=== PATIENT | male | born 1950 | race Caucasian/White ===

== ENCOUNTER 2022-11-19 22:35 | Emergency (ER) | payer OTHER ==
--- OUTSIDE RECORDS SUMMARY | 2022-11-19 22:39 | XMS REPORT | Continuity of Care Document ---
:1950 Author Organization [facility] t Address [address] [place] [address] [address] [place] [address] Care Team Providers Name Role Phone Win Herrera MD Primary Care Physician Shmuel Hunter MD Attending Clinician Marco CHOW, Unique Garrett Attending Clinician Ruddy NICHOLE, Christi Attending Clinician Unavailable Kai HAND, Taylor Garisa Attending Clinician Rommel Monzon MD Attending Clinician Preston Zaragoza MA Attending Clinician Unavailable Brooklynn Bergeron APRN Attending Clinician Leonor Attending Clinician Unavailable Michel Moffett MD Attending Clinician [phone] SHMUEL HUNTER Admitting Clinician Unavailable Leonor Admitting Clinician Unavailable Payers Payer Name Policy Type Policy Number Effective Date Expiration Date [employer] [id number] (MEDICARE REPLACEMENT/ADVANTAGE - PPO) Problems Condition Condition Condition Status Onset Resolution Last Treating Co mments Source Name Details Category Date Date Treatment Clinician Date Instabilit Instabilit Disease Active 2022-0 M ethodi y of y of 6-12 st internal internal 00:00: Hospit a left knee left knee 00 l prosthesis prosthesis , initial , initial encounter encounter Chronic Chronic Disease Active Methodi pain of pain of 5-15 st left knee left knee 00:00: Hosp riana 00 l Gabby-prost Gabby-prost Disease Active M ethodi hetic hetic 5-15 st fracture fracture 00:00: Hospit a of shaft of shaft 00 l of femur of femur Instabilit Instabilit Disease Active M ethodi y of y of 3-07 st internal internal 00:00: Hospit a left knee left knee 00 l prosthesis prosthesis Bilateral Bilateral Disease Active Met hodi primary primary 1-31 st osteoarthr osteoarthr 00:00: Ho spita itis of itis of 00 l knee knee Status Status Disease Active Methodi post post -31 st bilateral bilateral 00:00: Hosp riana knee knee 00 l replacemen replacemen ts ts Pain in Pain in Problem Active [facility] both feet Both Feet 1-17 Orth ope 00:00: dic 00 Sports Medicin e Pain of Pain of Problem Active [facility] left knee Left Knee 1-17 Orth ope joint Joint 00:00: dic 00 Sports Medicin e Sleep Sleep Disease Active 2021-05 Methodi apnea apnea 2-15 st 00:00: Hospita 00 l Hip pain Hip Pain Problem Active [facility] a 4-02 Orthope 00:00: dic 00 Sports Medicin e Knee pain Knee Pain Problem Active Cassidy chaudhary 4-02 Orthope 00:00: dic 00 Sports Medicin e Hypermobil Hypermobil Problem Active 2016-05 A 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 00:00: dic 00 Sports Medicin e Seronegati Seronegati Problem Active A juve ve ve 9-06 Orthope rheumatoid Rheumatoid 00:00: di c arthritis Arthritis 00 Spor ts Medicin e Eruption Eruption Problem Active Amanuel a 9-06 Orthope 00:00: dic 00 Sports Medicin e Restrictiv Restrictiv Problem Active 2014-05 Gerald felder 2-08 Orthope cardiomyop Cardiomyop 00:00: di c athy athy 00 Sports secondary Secondary Medi flower to to e granulomas Granulomas Gastroesop Gastroesop Problem Active 2013-05 A juve hageal hageal 1-18 Orthope reflux Reflux 00:00: dic disease Disease 00 Sports Medicin e Diverticul Diverticul Problem Active 2013-05 Gerald an um of um of 1-18 Orthope bladder Bladder 00:00: dic 00 Sports Medicin e Acute Acute Problem Active 2013-05 [facility] prostatiti Prostatiti 1-18 Or thope s s 00:00: dic 00 Sports Medicin e Insomnia Insomnia Problem Active 2013-05 Azale a with sleep with Sleep -18 Or thope apnea Apnea 00:00: dic 00 Sports Medicin e Allergies, Adverse Reactions, Alerts Allergy Allergy Status Severity Reaction(s) Onset Inactive Treating Comm ents Source Name Type Date Date Clinician Levoflox Propensi Active Rash 2021-05 Method i acin ty to 2-15 st adverse 00:00: Hospita reaction 00 l s to drug Penicill Propensi Active Rash 2021-05 Method i in ty to 2-15 st adverse 00:00: Hospita reaction 00 l s to drug Levaquin Allergy Active [facility] to 3-21 Orthope substanc 00:00: dic e 00 Sports Medicin e PENICILL Allergy Active [facility] IN to 3-21 Orthope substanc 00:00: dic e 00 Sports Medicin e Penicill DA Active [facility] ins 5-20 [place] 00:00: Orthope 00 dic Hospita l levoflox DA Active [facility] acin 5-20 [place] 00:00: Orthope 00 dic Hospita l Family History Family Member Diagnosis Comments Start Date Stop Date Source Natural father Cancer [facility] Natural mother Cancer [facility] Social History Social Habit Start Date Stop Date Quantity Comments Source Gender identity [facility] Sexual orientation [facility] Alcohol intake 2022-11-18 2022-11-18 Current drinker [facility] 00:00:00 00:00:00 of alcohol Hospital (finding) History of Social 2022-11-18 2022-11-[address] function 00:00:00 00:00:00 Hospital Tobacco use and 2022-06-22 2022-06-22 Smokeless Judaism exposure 00:00:00 00:00:00 tobacco non-user Hospital Sex Ass[birth year] At [birth year] [facility] 00:00:00 00:00:00 Hospital Smoking Status Start Date Stop Date Source Never smoked tobacco [facility] Medications Ordered Filled Start Stop Current Ordering Indication Dosage Frequency Signature Comments Components Source Medication Medication Date Date Medication? Clinician (SIG) Name Name ciprofloxac 2022- Yes 500mg Q.5D Take 1 Me thodi in (Cipro) 11-18-[address] 500 MG 00:00: 04:59 (500 mg Hospita tablet 00 :00 total) by l mouth 2 (two) times a day for 14 days. HYDROcodone 2022- Yes [id number] 1{tbl} Q4H Take 1 Methodi -acetaminop 11-18-[address] hen (Deep Nines) 00:00: 04:59 mouth Hosp riana 7.5-325 mg 00 :00 every 4 l per tablet (four) hours as needed for moderate pain for up to 7 days .acute pain. Max Daily Amount: 6 tablets multivitami Yes 1{tbl} QD Take 1 Me thodi n tablet 6-[address] 14:40: mouth Hospita 42 daily. l docusate Yes 100mg Q.5D Take 1 Method i sodium 6-[address] (Colace) 00:00: (100 mg Hospit a 100 MG 00 total) by l capsule mouth 2 (two) times a day as needed for constipati on. celecoxib 2022- Yes 200mg Q.5D Take 1 Meth nasim (CeleBREX) 11-05-[address] 200 MG 00:00: 04:59 (200 mg Hospita capsule 00 :00 total) by l mouth 2 (two) times a day for 30 days. aspirin 81 2022- Yes 81mg Q.5D Chew 1 Meth nasim mg chewable 11-05-17 tablet (81 s t tablet 00:00: 04:59 mg total) Hospi ta 00 :00 2 (two) l times a day for 30 days. [place]DRO[place]one 2022- [place] [id number] 1{tbl} Q6H Take 1 Methodi -acetaminop 6-16 06-[address] hen (Deep Nines) 00:00: 04:59 mouth Hosp riana 7.5-325 mg 00 :00 every 6 l per tablet (six) hours as needed for moderate pain for up to 8 days .acute pain. Max Daily Amount: 4 tablets meloxicam 2022- No TAKE ONE Met hodi (MOBIC) 15 4 06-[address] mg tablet 00:00: 00:00 MOUTH ONCE H ospita 00 :00 DAILY l meloxicam 2022- No 15mg QD Take 1 Metho di (MOBIC) 15 2-03 04-27 tablet (15 st mg tablet 00:00: 00:00 mg total) Ho spita 00 :00 by mouth l daily for 30 days. losartan 2021-05 Yes Methodi (COZAAR) 2-14 st 100 MG 00:00: Hospita tablet 00 l adalimumab 2021-05 Yes Methodi (HUMIRA) 40 2-14 st mg/0.8 mL 00:00: Hospita pen 00 l injector kit injection pen kit fenofibrate 2021-05 Yes Method i (TRICOR) 2-09 st 145 MG 00:00: Hospita tablet 00 l ezetimibe 2021-05 Yes Methodi (ZETIA) 10 2-09 st mg tablet 00:00: Hospita 00 l omeprazole 2021-05 Yes Methodi (PriLOSEC) 1-27 st 40 MG 00:00: Hospita capsule 00 l omeprazole omeprazole No omeprazole [facility] 40 mg 40 mg 40 mg Orthope capsule,del capsule,del capsule,de dic ayed ayed layed Sports release release release Medici n capsule by capsule by capsule by e mouth mouth mouth ezetimibe ezetimibe No ezetimibe [facility] 10 mg 10 mg 10 mg Orthope tablet tablet tablet dic tablet by tablet by tablet by Sports mouth mouth mouth Medicin e fenofibrate fenofibrate No fenofibrat [facility] nanocrystal nanocrystal e O rthope lized 145 lized 145 nanocrysta dic mg tablet mg tablet llized 145 Sports mg tablet Medicin e losartan losartan No losartan Aza neena 100 mg 100 mg 100 mg Orthope tablet TAKE tablet TAKE tablet dic 1 TABLET BY 1 TABLET BY TAKE 1 Sports MOUTH EVERY MOUTH EVERY TABLET BY Medicin DAY DAY MOUTH e EVERY DAY losartan 50 losartan 50 No losartan [facility] mg tablet mg tablet 50 mg Orth ope tablet by tablet by tablet dic mouth mouth tablet by Sports mouth Medicin e Humira(CF) Humira(CF) 2022- No Humira(CF) [facility] Pen 40 Pen 40 06-21 Pen 40 Orthope mg/0.4 mL mg/0.4 mL 00:00 mg/0.4 mL dic subcutaneou subcutaneou :00 subcutaneo Sports s kit s kit us kit Medicin Inject 1 Inject 1 Inject 1 e pen pen pen injector injector injector subcutaneou subcutaneou subcutaneo sly as sly as usly as directed directed directed Immunizations Ordered Immunization Filled Immunization Date Status Commen ts [facility] Completed Methodis t MRNA BIVALENT 00:00:00 Hospital BOOSTER VACCINATION FLUZONE HIGH-DOSE PF 2022-02-22 Completed Meth odist 00:00:00 [place] [id number] 2021-01-06 Completed Methodis t MRNA VACCINATION 00:00:00 [place] [address] 2020-07-15 Completed Methodis t MRNA VACCINATION 00:00:00 [place] [address] 2020-06-17 Completed Methodis t MRNA VACCINATION 00:00:00 Hospital Vital Signs Vital Name Observation Time Observation Value Comments Source BP Diastolic 2022-06-08 00:00:00 123 mm[Hg] [facility] Height 2022-06-08 00:00:00 71 [in_i] [facility] BMI (Body Mass 2022-06-08 00:00:00 37.1 kg/m2 [facility]) Sports Medicine BP Systolic 2022-06-08 00:00:00 197 mm[Hg] [facility] Body Weight 2022-06-08 00:00:00 266 [lb_av] [facility] Body height 2022-11-18 18:00:00 179[facility]1 [facility] Body weight 2022-11-18 18:00:00 121.11 [facility] BMI 2022-11-18 18:00:00 37.77 kg/m2 [facility] Systolic blood 2022-11-05 17:02:17 147 mm[Hg] Method ist Hospital pressure Diastolic blood 2022-11-05 17:02:17 69 mm[Hg] [facility] Hospital pressure Heart rate 2022-11-05 17:02:17 68 /min [facility] Body temperature 2022-11-05 17:02:17 37.22 Jayda [facility] Oxygen saturation in 2022-11-05 17:02:17 97 /min [facility] Arterial blood by Pulse oximetry Respiratory rate 2022-11-05 09:17:41 20 /min [facility] Procedures Procedure Date / Time Performing Clinician Source Performed DURABLE MEDICAL EQUIPMENT 2022-11-05 15:26:11 [facility] CBC WITH PLATELET AND 2022-11-05 10:15:00 [facility] DIFFERENTIAL CBC WITH PLATELET AND 2022-11-04 10:30:00 [facility] DIFFERENTIAL SMEAR REVIEW 2022-11-04 10:30:00 [facility] XR FEMUR 2 VW LEFT 2022-11-03 21:30:00 [facility] CO AN ELECTIVE 2022-11-03 19:23:00 Gopal Morgan [facility] ENDOTRACHEAL AIRWAY ORIF, FRACTURE, FEMUR 2022-11-03 19:11:00 [facility] HEMOGLOBIN & HEMATOCRIT 2022-11-03 10:39:00 [facility] BASIC METABOLIC PANEL 2022-11-03 10:39:00 [facility] ESTIMATED GFR 2022-11-03 10:39:00 [facility] HEMOGLOBIN & HEMATOCRIT 2022-11-02 09:56:00 [facility] BASIC METABOLIC PANEL 2022-11-02 09:56:00 [facility] VANCOMYCIN LEVEL, RANDOM 2022-11-02 09:56:00 [facility] ESTIMATED GFR 2022-11-02 09:56:00 [facility] XR KNEE 1 OR 2 VW LEFT 2022-11-01 23:54:00 [facility] Shmuel [facility] ANAEROBIC CULTURE 2022-11-01 20:13:00 [facility] FUNGUS CULTURE 2022-11-01 20:13:00 [facility] AFB STAIN 2022-11-01 20:13:00 [facility] AFB CULTURE 2022-11-01 20:13:00 [facility] GRAM STAIN 2022-11-01 20:13:00 [facility] JOINT FLUID CULTURE 2022-11-01 20:13:00 [facility] TISSUE CULTURE 2022-11-01 20:13:00 [facility] CO AN ELECTIVE 2022-11-01 19:05:00 Gopal Thakur [facility] SUPRAGLOTTIC AIRWAY Greg REVISION, ARTHROPLASTY, 2022-11-01 18:44:00 [facility] KNEE HC NERVE BLOCK INJ OTHER 2022-11-01 18:35:25 [facility] PERIPHERAL HC US GUIDANCE NEEDLE 2022-11-01 18:32:52 [facility] Floyd [facility] PLACEMENT RS&I HC NERVE BLOCK INJ OTHER 2022-11-01 18:32:52 [facility] PERIPHERAL HC NERVE BLOCK INJ 2022-11-01 18:29:45 [facility] Floyd Ponce [facility] FEMORAL SINGLE W IMG GUID HC NERVE BLOCK INJ OTHER 2022-11-01 18:27:50 [facility] PERIPHERAL ABO/RH 2022-11-01 14:28:00 [facility] POC GLUCOSE 2022-11-01 14:28:00 [facility] SURGICAL PATHOLOGY 2022-11-01 13:49:00 [facility] REQUEST TYPE AND SCREEN 2022-10-26 17:53:00 [facility] PARTIAL THROMBOPLASTIN 2022-10-26 17:53:00 [facility] TIME (PTT) PROTHROMBIN TIME WITH INR 2022-10-26 17:53:00 [facility] CBC WITH PLATELET AND 2022-10-26 17:53:00 Brooklynn Bergeron [facility] DIFFERENTIAL COMPREHENSIVE METABOLIC 2022-10-26 17:53:[address] [facility] PANEL HEMOGLOBIN A1C 2022-10-26 17:53:00 [facility] ESTIMATED GFR 2022-10-26 17:53:00 [facility]lyssa [facility] URINE CULTURE 2022-10-26 17:47:00 Elyssa [facility] URINALYSIS SCREEN AND 2022-10-26 17:47:00 ElyssaBrooklynn vasques [facility] MICROSCOPY, WITH REFLEX TO CULTURE ECG PRE/POST OP 2022-10-26 17:28:44 Elyssa [facility] NM BONE SCAN 3 PHASE 2022-07-07 20:20:00 Shmuel Hunter [facility] C-REACTIVE PROTEIN 2022-06-22 17:55:00 [facility] SEDIMENTATION RATE 2022-06-22 17:55:00 [facility] XR KNEE 3 VW BILATERAL 2022-06-22 15:48:27 [facility] OCT, OPTIC NERVE - OU - 2022-05-06 17:42:47 Michel Moffett [facility] BOTH EYES Gabe AUTOMATED VISUAL FIELD, 2022-05-06 17:39:22 Michel Moffett [facility] EXTENDED - OU - BOTH EYES Gabe Plan of Care Planned Activity Planned Date Details Comments Source Future Scheduled 2022-11-19 Screening for [facility] Test 14:47:11 malignant neoplasm of colon (procedure) [code = 100558131] Future Scheduled 2022-11-19 Screening for [facility] Test 14:47:11 malignant neoplasm of colon (procedure) [code = 122082597] Future Scheduled 2022-11-19 Screening for [facility] Test 14:47:11 malignant neoplasm of colon (procedure) [code = 465677941] Future Scheduled 2022-11-19 Hepatitis C screening [facility] Test 14:47:11 (procedure) [code = 749481115] Future Scheduled 2022-11-19 Screening for [facility] Test 14:47:11 malignant neoplasm of colon (procedure) [code = 891434771] Future Scheduled 2022-11-19 Screening for [facility] Test 14:47:11 malignant neoplasm of colon (procedure) [code = 310900592] Future Scheduled 2022-11-19 SHINGLES VACCINES (1 Met [facility] Test 14:47:11 of 2) [code = SHINGLES VACCINES (1 of 2)] Future Scheduled 2022-11-19 65+ [facility] 14:47:11 VACCINE (1 - PCV) [code = 65+ PNEUMOCOCCAL VACCINE (1 - PCV)] Future Scheduled 2022-11-19 COVID-19 VACCINE (5 - Me [facility] Test 14:47:11 Moderna series) [code = COVID-19 VACCINE (5 - Moderna series)] Future Scheduled 2022-11-19 INFLUENZA VACCINE Method [facility] Test 14:47:11 [code = INFLUENZA VACCINE] Diagnostic Test 2022-06-08 erythrocyte [facility] Pending 00:00:00 sedimentation rate by Sports Medicine westergren method [code = erythrocyte sedimentation rate by westergren method] Diagnostic Test 2022-06-08 C-reactive protein, [facility] Pending 00:00:00 quantitative [code = Sports Medicine C-reactive protein, quantitative] Diagnostic Test 2022-06-08 unlisted lab [code = [facility]al ea Orthopedic Pending 00:00:00 unlisted lab] Sports Medicin e Encounters Start End Encounter Admission Attending Care Care Encounter Source Date/Time Date/Time Type Type Clinicians Facility Department ID 2022-11-19 2022-11-19 Telephone Elsa 1.2.840.1 [id number] Methodi 00:00:00 00:00:00 Shmu[address]674.[address] 3.430.2.7 Hospit a .3.759701 l .8 2022-11-18 2022-11-18 Office Wyatt Lara.2.840.1 [id number] Methodi 13:30:00 14:18:23 Visit Unique Garrett 74701.1.[address] 3.430.2.7 Hospit a .3.720861 l .8 2022-11-18 2022-11-18 Outpatient [facility] [id number] [place] 00:00:00 00:00:[address] 2022-11-15 2022-11-15 Telephone Elsa, 1.2.840.1 [id number] Methodi 00:00:00 00:00:00 Shmuel Damon [address]35.[address] 3.430.2.7 Hospit a .3.846322 l .8 2022-11-08 2022-11-08 Patient Ruddy, 1.2.840.1 [id number] Methodi 00:00:00 00:00:00 Outreach Christi 98902.1.[address] 3.430.2.7 Hospit a .3.570794 l .8 2022-11-01 2022-11-05 Hospital Elsa, 1.2.840.1 [id number] Methodi 08:07:00 14:40:00 Encounter Shmuel Damon 52158.1.1 097 s t 3.430.2.7 Hospit a .3.340236 l .8 2022-11-01 2022-11-05 [id number] 691 [place] 00:00:00 00:00:[address] SHMUEL [address] 2022-11-03 2022-11-03 Surgery Elsa, 1.2.840.1 [id number] Methodi 13:30:00 17:55:00 [address] 3.430.2.7 Hospit a .3.276006 l .8 2022-11-03 2022-11-03 Anesthesia Taylor Quinn 1.2.840.1 [id number] Methodi 14:07:00 17:28:00 Event Rommel Monzon 89672.1.[address] 3.430.2.7 Hospit a .3.156954 l .8 2022-11-02 2022-11-02 Orders Nik 1.2.840.1 [id number] Methodi 00:00:00 00:00:00 Only Preston 18477.1.[address] 3.430.2.7 Hospit a .3.922429 l .8 2022-11-02 2022-11-02 Orders Zaragoza, 1.2.840.1 [id number] Methodi 00:00:00 00:00:00 Only Preston 91477.1.[address] 3.430.2.7 Hospit a .3.040271 l .8 2022-11-01 2022-11-01 Anesthesia Basile Fajardo Ady 1.2.840.1 [id number] Methodi 13:48:00 18:48:00 Event ElyssaBrooklynn Nicol 28080.1.[address] 3.430.2.7 Hospit a .3.591093 l .8 2022-11-01 2022-11-01 Surgery Elsa, 1.2.840.1 [id number] Methodi 14:15:00 18:20:00 Sh[address] Dam[address]01.[address] 3.430.2.7 Hospit a .3.096144 l .8 2022-11-01 2022-11-01 Travel 1.2.840.1 1.2.693.647 [id number] [id number] Methodi 00:00:00 00:00:[address] 3.430.2.7 0.2.7.3.698 spita .3.421429 084.8 l .8 2022-10-29 2022-10-29 Telephone Elsa, 1.2.840.1 [id number] Methodi 00:00:00 00:00:00 Sh[address] 3.430.2.7 Hospit a .3.934893 l .8 2022-10-26 2022-10-26 Office Elsa, 1.2.840.1 [id number] Methodi 10:00:00 12:44:18 Visit Shmuel Damon 07277.1.[address] 3.430.2.7 Hospit a .3.331846 l .8 2022-10-26 2022-10-26 Pre-Admiss Shmuel Hunter 1.2.840.1 [id number] Methodi 11:10:00 12:10:00 Brooklynn MenaAmilcar 98047.1.[address] Testing 3.430.2.7 Hospit a .3.186881 l .8 2022-10-26 2022-10-26 Outpatient ELSA [facility] [id number] [place] 00:00:00 00:00:00 SHMUEL [address] 2022-10-26 2022-10-26 Outpatient ELSA [facility] [id number] [place] 00:00:00 00:00:00 SHMUEL [address] 2022-10-26 2022-10-26 Orders Nik, 1.2.840.1 [id number] Methodi 00:00:00 00:00:00 Only Preston 08583.1.[address] 3.430.2.7 Hospit a .3.068677 l .8 2022-10-26 2022-10-26 Travel 1.2.840.1 1.2.990.314 [id number] [id number] Methodi 00:00:00 00:00:[address] 3.430.2.7 0.2.7.3.698 Ho spita .3.112529 084.8 l .8 2022-10-04 2022-10-04 Orders Nik, 1.2.840.1 [id number] Methodi 00:00:00 00:00:00 Only Preston 00900.1.[address] 3.430.2.7 Hospit a .3.608026 l .8 2022-09-24 2022-09-24 Charles Hunter, 1.2.840.1 [id number] Methodi 00:00:00 00:00:00 [address] 3.430.2.7 Hospit a .3.990053 l .8 2022-09-16 2022-09-16 Refrosio Lara, 1.2.840.1 [id number] Methodi 00:00:00 00:00:00 Unique Garrett 59280.1.[address] 3.430.2.7 Hospit a .3.715673 l .8 2022-07-27 2022-07-27 Office Elsa, 1.2.840.1 [id number] Methodi 11:00:00 12:04:49 Visit Shmuel Damon 41904.1.[address] 3.430.2.7 Hospit a .3.626490 l .8 2022-07-27 2022-07-27 Outpatient [facility] [id number] [place] 00:00:00 00:00:00 SHMUEL [address] 2022-07-09 2022-07-09 Outpatient [facility]_Stocks_ [facility]OS[facility] AOSM 583 [id number] [facility] 00:00:00 00:00:00 Shante [id number] Orth ope dic Sports Medicin e 2022-07-07 2022-07-07 [facility], 1.2.840.1 [id number] Methodi 13:30:00 23:59:00 Encounter Shmuel Damon 26225.1.1 820 s t 3.430.2.7 Hospit a .3.449929 l .8 2022-07-07 2022-07-07 [facility], 1.2.840.1 [id number] Methodi 10:30:00 13:29:00 Encounter Shmuel Damon 49422.1.1 819 s t 3.430.2.7 Hospit a .3.651621 l .8 2022-07-07 2022-07-07 [facility] [id number] [place] 00:00:00 00:00:00 SHMUEL [address] 2022-07-07 2022-07-07 [facility] [id number] [place] 00:00:00 00:00:00 SHMUEL [address] 2022-07-07 2022-07-07 Travel 1.2.840.1 1.2.345.111 [id number] [id number] Methodi 00:00:00 00:00:[address] 3.430.2.7 0.2.7.3.698 Ho spita .3.075777 084.8 l .8 2022-06-28 2022-06-28 Orders Zaragoza, 1.2.840.1 [id number] Methodi 00:00:00 00:00:00 Only Preston 85298.1.[address] 3.430.2.7 Hospit a .3.432290 l .8 2022-06-25 2022-06-25 Orders Lara, 1.2.840.1 [id number] Methodi 00:00:00 00:00:00 Only Unique Garrett [address]90.1.[address] 3.430.2.7 Hospit a .3.011106 l .8 2022-06-22 2022-06-22 Lab Elsa, 1.2.840.1 [id number] Methodi 11:40:00 11:45:00 Sh[address] 3.430.2.7 Hospit a .3.255870 l .8 2022-06-22 2022-06-22 Office Elsa, 1.2.840.1 [id number] Methodi 09:30:00 11:00:06 Visit Shmuel Damon 66798.1.[address] 3.430.2.7 Hospit a .3.509513 l .8 2022-06-22 2022-06-22 Outpatient ELSA [facility] [id number] [place] 00:00:00 00:00:00 SHMUEL [address] 2022-06-22 2022-06-22 Outpatient ELSA [facility] [id number] [place] 00:00:00 00:00:00 SHMUEL [address] 2022-06-22 2022-06-22 Outpatient ELSA [facility] [id number] [place] 00:00:00 00:00:00 SHMUEL [address] 2022-06-22 2022-06-22 Outpatient ELSA, [facility] [id number] [place] 00:00:00 00:00:[address] SHMUEL [address] 2022-06-22 2022-06-22 Travel 1.2.840.1 1.2.426.675 [id number] [id number] Methodi 00:00:00 00:00:[address] 3.430.2.7 0.2.7.3.698 Ho spita .3.942085 084.8 l .8 2022-06-22 2022-06-22 Orders Zaragoza, 1.2.840.1 [id number] Methodi 00:00:00 00:00:00 Only Preston 42756.1.[address] 3.430.2.7 Hospit a .3.048910 l .8 2022-06-21 2022-06-21 Orders Zaragoza, 1.2.840.1 [id number] Methodi 00:00:00 00:00:00 Only Preston 23638.1.[address] 3.430.2.7 Hospit a .3.595343 l .8 2022-06-09 2022-06-09 Travel 1.2.840.1 1.2.177.939 4258 [id number] Methodi 00:00:00 00:00:[address] 3.430.2.7 0.2.7.3.698 Ho spita .3.332094 084.8 l .8 2022-06-08 2022-06-08 Outpatient FOG_Stocks_ AOSM AOSM 583 1135-20 [place] 00:00:00 00:00:00 Shante [id number] Orth ope dic Sports Medicin e 2022-06-08 2022-06-08 Zakiya Clark AOS[facility] [place] - Ortho [id number] 7 [place] 00:00:00 00:00:00 MD Pernell: [place] - Orthope [address] FOG_Ofc dic [place] [facility] [place] [address] , Ph. [phone] 2022-06-05 2022-06-05 Outpatient FOG_Stocks_ AOSM AOSM 583 [id number] [place] 00:00:00 00:00:00 Shante [id number] Orth ope dic [facility] 2022-05-06 2022-05-06 Office Darlene, 1.2.840.1 [id number] Methodi 09:45:00 12:56:08 Visit Michel [address]87.1.[address] [facility] 3.430.2.7 Hospit a .[id number] l .8 2022-05-06 2022-05-06 Outpatient DARLENE, [facility] [id number] [place] 00:00:00 00:00:[address] 2022-05-05 2022-05-05 Travel 1.2.840.1 [id number] Methodi 00:00:00 00:00:[address] 3.430.2.7 0.2.7.3.698 Ho spita .3.342015 084.8 l .8 2022-02-22 2022-02-22 Outpatient FOG_Stocks_ AOSM AOSM 583 [id number] [place] 00:00:00 00:00:00 Shante [id number] Orth ope dic Sports Medicin e 2022-02-22 2022-02-22 Outpatient FOG_Stocks_ AOSM AOSM 583 [id number] [place] 00:00:00 00:00:00 Shante [id number] Orth ope dic Sports Medicin e Results Test Description Test Time Test Comments Results Result Comments Source Tissue culture 2022-11-09 10:10:00 Test Item Value Reference Range Interpretation Comme nts Tissue culture isolate Paenibacillus speciesFewThe A Specimen InformationSpecimen (test code = 70793-7) performance characteristics Source: TissueSpecimen Site: of this assay on this Knee: LEFT KNEE SYNOVIAL isolatewere validated by DANE LARA the Microbiology Laboratory at [facility]. This source has not been approved by the U.S. Food and Drug Administration. The results are not intended to be used as the sole means for clinical diagnosis or patient management. The Microbiology Laboratory is authorized under the clinical Laboratory Improvement Amendments of 1988 (CLIA-88) to perform high complexity testing. Lab Interpretation (test Abnormal code = 68624-2) [facility] [id number] 16:33:12 Test Item Value Reference Range Interpretation Comments SUPPLIER NAME (test code [facility] = 6415) SUPPLIER PHONE (test code = 6416) ORDER STATUS (test code = Delivery Successful 6417) DELIVERY NOTE (test code = 6419) REQUESTED DELIVEY DATE 11/05/2022 (test code = 6420) ITEM DESCRIPTION (test 3 in 1 Commode Qty : 1 code = 6423) ACTUAL DELIVERY DATE 11/05/2022 (test code = 6422) [facility]Ana[facility] [id number] 12:46:00 Test Item Value Reference Range Interpretation Comments Anaerobic No anaerobic Specimen culture isolate organisms InformationS pecimen (test code = isolated. Source: TissueS pecimen 14161-8) Site: Knee: LEF T KNEE SYNOVIAL TISSUE [facility] CampusAFB [id number] 12:20:00 Test Item Value Reference Range Interpretation Comments AFB stain No acid fast Specimen (test code = bacilli (AFB) InformationSpe cimen 676-7) seen. Source: Specime n Site: Knee: LEFT KNEE SYNOVIAL TERESA (test no tissue seen code = TERESA) [facility] [id number] 19:02:32 Test Item Value Reference Range Interpretation Comments Case number (test code = [id number]) Surgical pathology See link below for report (test code = PDF Lab Report [id number]) Result status (test code This is Final Report = [id number]) for [id number] [facility] [id number] 19:35:00 Test Item Value Reference Range Interpretation Comments Fungus smear No fungi Specimen (test code = observed. InformationSpec imen 1443) Source: Specime n Site: Knee: LEFT KNEE SYNOVIAL TERESA (test code no tissue seen = TERESA) [facility] CampusGram [id number] 08:31:00 Test Item Value Reference Range Interpretation Comments Gram stain No organisms Specimen isolate (test seen InformationSpe cimen code = 1469) Source: TissueS pecimen Site: Knee: LEF T KNEE SYNOVIAL TISSUE [facility] [id number] 14:29:00 Test Item Value Reference Range Interpretation Comments POC glucose (test code 109 mg/dL 65-99 H Opera tor Name: = 65829-2) Bryn Noble vice ID: [id number] able: No Action Neede d Lab Interpretation Abnormal (test code = 22979-7) [facility]ECG Pre/Post [id number] 22:47:33 Test Item Value Reference Range Interpretation Comments Ventricular rate (test 57 code = 253) Atrial rate (test code 57 = 255) CO interval (test code 198 = 266) QRSD interval (test 140 code = 260) QT interval (test code 450 = 264) QTC interval (test code 438 = 265) P axis 1 (test code = 52 267) QRS axis 1 (test code = -3 268) T wave axis (test code 9 = 270) EKG impression (test Sinus bradycardia with code = 273) premature atrial complexes-Right bundle branch block-Abnormal ECG-No previous ECGs available-Electronical ly Signed By Paula HAND, [facility] ([id number]) on 10/26/2022 5:47:01 PM [facility] CampusUrine [id number] 18:52:00 Test Item Value Reference Range Interpretation Comments Urine culture (test SEE COMMENT Bacteriu aram screen code = 4933974) negative. [facility]
[2022-11-19] MEDS ORDERED: MORPHINE 4 MG/ML SYR ONE (23:21)
[2022-11-19] MEDS ORDERED: KETOROLAC 30 MG/ML INJ ONE (23:21)
[2022-11-19] MEDS ORDERED: ONDANSETRON 4 MG/2 ML VIAL ONE (23:21)
[2022-11-20] MEDS ORDERED: HYDROCODONE/APAP 10/325 TAB ONE (01:45)
[2022-11-20] MEDS ORDERED: CYCLOBENZAPRINE 10 MG TAB ONE (01:45)
[2022-11-20] MEDS ORDERED: PROMETHAZINE 25 MG TABLET ONE (01:45)
--- NOTE | 2022-11-20 02:07 | ER ---
Nurse's Notes [facility] Name: Tomasz Singleton Age: 72 yrs Sex: Male : 1950 Arrival Date: 11/19/2022 Time: 22:35 Bed 4 Private MD: Diagnosis: Sprain of the left groin musculature, iliofemoral sprain, postoperative pain left knee, history of total knee replacement left with resultant postoperative pain, poor mobility Presentation: 11/19 22:39 Chief complaint: EMS states: left knee repair revision 11/01. during surgery femur lg3 sustained fracture. PT DC from [facility] 11/05. tonight pt was ambulating and heard a grinding noise in left knee. pt stated that he immediately pulled his knee up at a 90 degree angle and now his left groin hurts. Pt took norco 7.5 DIRECTOR INTERNAL AUDIT. denies any new onset pain to left knee. Coronavirus screen: Client denies travel out of the [place] in the last 14 days. At this time, the client does not indicate any symptoms associated with coronavirus-19. Ebola Screen: No symptoms or risks identified at this time. Initial Sepsis Screen: Does the patient meet any 2 criteria? No. Patient's initial sepsis screen is negative. Does the patient have a suspected source of infection? No. Patient's initial sepsis screen is negative. Risk Assessment: Do you want to hurt yourself or someone else? Patient reports no desire to harm self or others. Onset of symptoms was November 19, 2022. 22:39 Method Of Arrival: EMS[facility] 22:39 Acuity: AROLDO 3 lg3 Triage Assessment: 22:45 General: Appears in no apparent distress. uncomfortable, Behavior is calm, cooperative. lg3 Pain: Complains of pain in left groin, left leg. EENT: No deficits noted. No signs and/or symptoms were reported regarding the EENT system. Neuro: No deficits noted. Will Agitation-Sedation Scale (RASS): 0 - Alert and Calm Level of Consciousness is awake, alert, obeys commands, Oriented to person, place, time, situation. Cardiovascular: No deficits noted. Denies chest pain, shortness of breath, Capillary refill < 3 seconds Clubbing of nail beds is absent JVD is absent Patient's skin is warm and dry. Respiratory: No deficits noted. Airway is patent Respiratory effort is even, unlabored, Respiratory pattern is regular, symmetrical. GI: No deficits noted. No signs and/or symptoms were reported involving the gastrointestinal system. Abdomen is round non-distended, obese. : No deficits noted. No signs and/or symptoms were reported regarding the genitourinary system. Derm: Skin is intact, is healthy with good turgor, Skin is dry, Skin is normal, Skin temperature is warm post surgical incisions noted to left knee and thigh. Musculoskeletal: Circulation, motion, and sensation intact. Range of motion: intact in all extremities, Reports pain in left knee. Historical: - Allergies: 22:45 Levaquin; lg3 22:45 PENICILLINS; lg3 - Home Meds: 22:45 Zetia 10 mg Oral tablet daily [Active]; fenofibrate 150 mg oral capsule daily [Active]; lg3 losartan 100 mg oral tablet daily [Active]; omeprazole 40 mg Oral capsule,delayed release (e.c.) daily [Active]; - PMHx: 22:45 Sleep apnea; gerd; HTN; Hypercholesterolemia; lg3 - PSHx: 22:45 left knee; left femur; right shoulder; turp; lg3 - Immunization history:: Adult Immunizations up to date, Client reports receiving the 2nd dose of the Covid vaccine, Pneumococcal vaccine is up to date, Flu vaccine is up to date. - Social history:: Smoking status: Patient denies any tobacco usage or history of. Patient uses alcohol, occasionally. - Family history:: not pertinent. Screenin:52 [facility] ED Fall Risk Assessment (Adult) History of falling in the last 3 months, lg3 including since admission No falls in past 3 months (0 pts). Abuse screen: Denies threats or abuse. Denies injuries from another. Nutritional screening: No deficits noted. Tuberculosis screening: No symptoms or risk factors identified. Assessment: 22:51 General: see triage assessment . lg3 11/20 00:19 Reassessment: Patient appears in no apparent distress at this time. No changes from lg3 previously documented assessment. Patient and/or family updated on plan of care and expected duration. Pain level reassessed. Patient is alert, oriented x 3, equal unlabored respirations, skin warm/dry/pink. Patient states symptoms have improved. 02:00 Reassessment: Patient appears in no apparent distress at this time. No changes from lg3 previously documented assessment. Patient and/or family updated on plan of care and expected duration. Pain level reassessed. Patient is alert, oriented x 3, equal unlabored respirations, skin warm/dry/pink. Vital Signs: 11/19 22:39 BP 147 / 85; Pulse 70; Resp 16; Temp 98.2(O); Pulse Ox 98% on R/A; Weight 119.75 kg lg3 (R); Height 5 ft. 10 in. (R); 11/20 00:19 BP 146 / 77; Pulse 68; Resp 17 S; Pulse Ox 98% on R/A; lg3 02:01 BP 141 / 78; Pulse 71; Resp 17 S; Pulse Ox 97% on R/A; lg3 11/19 22:39 Body Mass Index 37.88 (119.75 kg, 177.8 cm) lg3 ED Course: 11/19 22:38 Patient arrived in ED. lg3 22:39 Suzanne Buckley RN is Primary Nurse. lg3 22:45 Reji Collado MD is Attending Physician. sp4 22:45 Triage completed. lg3 22:45 Arm band placed on left wrist. lg3 22:52 Patient has correct armband on for positive identification. Placed in gown. Bed in low lg3 position. Call light in reach. Side rails up X 1. Client placed on continuous cardiac and pulse oximetry monitoring. NIBP monitoring applied. Door closed. Noise minimized. Warm blanket given. 23:15 Inserted saline lock: 22 gauge in right antecubital area, using aseptic technique. lg3 23:38 CT Pelvis wo Cont In Process Unspecified. EDMS 07 00:11 Femur Left XRAY In Process Unspecified. EDMS 00:11 Knee Left 2 View XRAY In Process Unspecified. EDMS 02:23 No provider procedures requiring assistance completed. IV discontinued, intact, lg3 bleeding controlled, No redness/swelling at site. Pressure dressing applied. Administered Medications: 11/19 23:15 Drug: Ondansetron IVP 4 mg Route: IVP; Site: right antecubital; lg3 11/20 01:40 Follow up: Response: No adverse reaction; No change in condition lg3 11/19 23:15 Drug: Ketorolac IVP 30 mg Route: IVP; Site: right antecubital; lg3 11/20 01:40 Follow up: Response: No adverse reaction; No change in condition lg3 11/19 23:16 Drug: morphine IVP or IV 4 mg Route: IVP; Infused Over: 4 mins; Site: right antecubital;lg3 11/20 01:40 Follow up: Response: No adverse reaction lg3 01:40 Drug: [place] PO 10 mg-325 mg 1 tabs Route: PO; lg3 02:25 Follow up: Response: No adverse reaction; Marked relief of symptoms lg3 01:40 Drug: Cyclobenzaprine PO 10 mg Route: PO; lg3 02:25 Follow up: Response: No adverse reaction; Marked relief of symptoms lg3 01:40 Drug: Promethazine PO 25 mg Route: PO; lg3 02:25 Follow up: Response: No adverse reaction lg3 Medication: 02:24 VIS not applicable for this client. lg3 Outcome: 02:07 Discharge ordered by . sp4 02:23 Discharged to home via wheelchair, with significant other. lg3 02:23 Condition: stable 02:23 Discharge instructions given to patient, significant other, Instructed on discharge instructions, follow up and referral plans. medication usage, Demonstrated understanding of instructions, follow-up care, medications, Prescriptions given X 1. 02:24 Patient left the ED. lg3 Signatures: Dispatcher [employer] Suzanne Rob, RN RN lg3 Reji Collado MD MD sp4
--- NOTE | 2022-11-20 02:08 | EDPHYS ---
Physician Documentation [facility] Name: Tomasz Singleton Age: 72 yrs Sex: Male : 1950 Arrival Date: 11/19/2022 Time: 22:35 Bed 4 Private MD: ED Physician Reji Collado HPI: 11/19 22:46 This 72 yrs old Male presents to ER via EMS with complaints of Left groin sp4 pain . 11/20 02:26 Mr. Marshall is a 72-year-old male who has had left total knee arthroplasty at [address] on 11/01/2022 with additional fixation of femur on 11/03/2022 who was then released home for recovery. But at home he has missed stepped and caused moderate to severe pain in the left groin which is exacerbated with movement of the left hip. Patient arrived here with EMS complaining of moderate severe pain in the left groin and residual postoperative pain in the left knee and and left thigh. Patient has fresh postoperative bandages about his left knee left lower thigh as well. Patient is nonambulatory at this time secondary to pain in his left hip. Historical: - Allergies: 11/19 22:45 Levaquin; lg3 22:45 PENICILLINS; lg3 - Home Meds: 22:45 Zetia 10 mg Oral tablet daily [Active]; fenofibrate 150 mg oral capsule daily [Active]; lg3 losartan 100 mg oral tablet daily [Active]; omeprazole 40 mg Oral capsule,delayed release (e.c.) daily [Active]; - PMHx: 22:45 Sleep apnea; gerd; HTN; Hypercholesterolemia; lg3 - PSHx: 22:45 left knee; left femur; right shoulder; turp; lg3 - Immunization history:: Adult Immunizations up to date, Client reports receiving the 2nd dose of the Covid vaccine, Pneumococcal vaccine is up to date, Flu vaccine is up to date. - Social history:: Smoking status: Patient denies any tobacco usage or history of. Patient uses alcohol, occasionally. - Family history:: not pertinent. ROS: 11/20 02:26 Constitutional: Negative for fever, chills, and weight loss, MS/Extremity: Positive for sp4 moderate to severe left hip pain, left hip sprain, left postoperative knee pain, left postoperative thigh pain. Otherwise negative All other systems are negative. Exam: 02:26 Constitutional: This is a well developed, well nourished patient who is awake, alert, sp4 and in no acute distress. Head/Face: Normocephalic, atraumatic. Eyes: Pupils equal round and reactive to light, extra-ocular motions intact. Lids and lashes normal. Conjunctiva and sclera are not injected. Cornea within normal limits. Periorbital areas with no swelling, redness, or edema. ENT: Nares patent. No nasal discharge, no septal abnormalities noted. Tympanic membranes are normal and external auditory canals are clear. Oropharynx with no redness, swelling, or masses, exudates, or evidence of obstruction, uvula midline. Mucous membranes moist. Neck: Trachea midline, no thyromegaly or masses palpated, and no cervical lymphadenopathy. Supple, full range of motion without nuchal rigidity, or vertebral point tenderness. Chest/axilla: Normal chest wall appearance and motion. Nontender with no deformity. No lesions are appreciated. Cardiovascular: Regular rate and rhythm with a normal S1 and S2. No gallops, murmurs, or rubs. Normal PMI, no JVD. No pulse deficits. Respiratory: Lungs have equal breath sounds bilaterally, clear to auscultation and percussion. No rales, rhonchi or wheezes noted. No increased work of breathing, no retractions or nasal flaring. Abdomen/GI: Soft, non-tender, with normal bowel sounds. No distension or tympany. No guarding or rebound. No evidence of tenderness throughout. Back: No spinal tenderness. No costovertebral tenderness. Skin: Warm, dry with normal turgor. Normal color with no rashes, no lesions, and no evidence of cellulitis. MS/ Extremity: Pulses equal, no cyanosis. Neurovascular intact. Intact peripheral pulses left lower extremity, postoperative bandages left knee and left lower thigh, there is moderate to severe left hip pain with movement exam is limited secondary to pain. No left lower extremity paralysis. Patient is nonambulatory at this time secondary to pain, Neuro: Awake and alert, GCS 15, oriented to person, place, time, and situation. Cranial nerves II-XII grossly intact. Motor strength 5/5 in all extremities. Sensory grossly intact. Psych: Awake, alert, with orientation to person, place and time. Behavior, mood, and affect are within normal limits Vital Signs: 11/19 22:39 BP 147 / 85; Pulse 70; Resp 16; Temp 98.2(O); Pulse Ox 98% on R/A; Weight 119.75 kg lg3 (R); Height 5 ft. 10 in. (R); 11/20 00:19 BP 146 / 77; Pulse 68; Resp 17 S; Pulse Ox 98% on R/A; lg3 02:01 BP 141 / 78; Pulse 71; Resp 17 S; Pulse Ox 97% on R/A; lg3 11/19 22:39 Body Mass Index 37.88 (119.75 kg, 177.8 cm) lg3 MDM: 11/19 22:48 Patient medically screened. sp4 11/20 01:11 ED course: EXAM: XR Left Knee, 1 or 2 Views CLINICAL HISTORY: The patient is 72 years sp4 old and is Male; pain and recent surgery TECHNIQUE: Frontal and/or lateral views of the left knee. COMPARISON: No relevant prior studies available. FINDINGS: BONES/JOINTS: A long stem knee prosthesis is present. The hardware is engaged. Lateral plate and cerclage wires stabilizing the distal femoral diaphysis is noted. No acute fracture. No dislocation. SOFT TISSUES: Extensive soft tissue swelling about the knee is present. IMPRESSION: Postoperative change of the left knee without acute findings.. ED course: EXAM: XR Left Femur, 2 Views CLINICAL HISTORY: The patient is 72 years old and is Male; recent surgery, assess for hardware problem TECHNIQUE: Frontal and lateral views of the left femur. COMPARISON: No relevant prior studies available. FINDINGS: BONES/JOINTS: Lateral plate and screws and cerclage wires along the mid to distal left femur is present. Associated nondisplaced mid diaphyseal femur fracture is present. Left knee prosthesis is noted. The hardware is engaged without surrounding lucency. No dislocation. SOFT TISSUES: Unremarkable. IMPRESSION: Postoperative change of the femur with plate and screw fixation stabilizing a nondisplaced fracture of the mid diaphysis. Comparison with preoperative radiographs of the useful. ED course: EXAM: CT Pelvis Without Intravenous Contrast CLINICAL HISTORY: The patient is 72 years old and is Male; acute pain Left hip TECHNIQUE: Axial computed tomography images of the pelvis without intravenous contrast. Sagittal and coronal reformatted images were created and reviewed. This CT exam was performed using one or more of the following dose reduction techniques: automated exposure control, adjustment of the mA and/or kV according to patient size, and/or use of iterative reconstruction technique. COMPARISON: No relevant prior studies available. FINDINGS: BONES/JOINTS: Cystic change within the right pubic root is present. The femoral heads are located. The SI joints and pubic symphysis are intact without evidence of diastases. Degenerative change of lower lumbar spine is present. There is no acute fracture of the visualized bones of the pelvis. Ankylosis of the left SI joint is present. SOFT TISSUES: The soft tissues are normal. VASCULATURE: Atherosclerosis of the vasculature is present. BLADDER: The bladder is significantly distended. No stones. IMPRESSION: No acute bony abnormality in the pelvis. . 02:26 Differential Diagnosis Left hip sprain, left iliofemoral ligament tear. Left acetabulum sp4 fracture, pelvic fracture. Data reviewed: vital signs, nurses notes, EMS record, radiologic studies, CT scan, plain films. Consideration of Admission/Observation Escalation of care including admission/observation considered. ED course: Patient was able to stand up with some assistance and get into the wheelchair. Patient does have poor mobility but he has a walker at home to assist with ambulation. Patient at this time stable for discharge home with some Flexeril for muscle soreness. Patient has hydrocodone at home that he takes as needed for pain. At this time stable for discharge home will be advised to see his orthopedist for his acute left hip sprain to inquire about MRI of the left hip/hip joint in case pain does not improve. . 11/19 22:47 Order name: Femur Left XRAY sp4 11/19 22:47 Order name: Knee Left 2 View XRAY sp4 11/19 22:47 Order name: CT Pelvis wo Cont sp4 11/19 22:47 Order name: Saline Lock; Complete Time: 23:16 sp4 Administered Medications: 11/19 23:15 Drug: Ondansetron IVP 4 mg Route: IVP; Site: right antecubital; [facility] 11/20 01:40 Follow up: Response: No adverse reaction; No change in condition 3 11/19 23:15 Drug: Ketorolac IVP 30 mg Route: IVP; Site: right antecubital; 3 11/20 01:40 Follow up: Response: No adverse reaction; No change in condition 3 11/19 23:16 Drug: morphine IVP or IV 4 mg Route: IVP; Infused Over: 4 mins; Site: right antecubital;lg3 11/20 01:40 Follow up: Response: No adverse reaction lg3 01:40 Drug: [place] PO 10 mg-325 mg 1 tabs Route: PO; lg3 02:25 Follow up: Response: No adverse reaction; Marked relief of symptoms lg3 01:40 Drug: Cyclobenzaprine PO 10 mg Route: PO; lg3 02:25 Follow up: Response: No adverse reaction; Marked relief of symptoms lg3 01:40 Drug: Promethazine PO 25 mg Route: PO; lg3 02:25 Follow up: Response: No adverse reaction lg3 Disposition Summary: 11/20/22 02:07 Discharge Ordered Location: Home sp4 Problem: new sp4 Symptoms: have improved sp4 Condition: Stable sp4 Diagnosis - Sprain of the left groin musculature, iliofemoral sprain, postoperative pain left sp4 knee, history of total knee replacement left with resultant postoperative pain, poor mobility Followup: sp4 - With: Private Physician - When: 2 - 3 days - Reason: Recheck today's complaints Discharge Instructions: - Discharge Summary Sheet sp4 - Hip Sprain sp4 Forms: - [email or web address] sp4 Prescriptions: - Cyclobenzaprine 10 mg Oral Tablet - take 1 tablet by ORAL route every 8 hours As needed; 30 tablet; Refills: 0, sp4 Product Selection Permitted Signatures: Dispatcher [facility] Suzanne Rob RN RN lg3 Reji Collado MD MD sp4
[2022-11-20 02:30] VITALS: TEMP 98.2
[2022-11-20 02:33] VITALS: BP 141/78; O2SAT 97
--- NOTE | 2022-11-21 19:56 | RAD REPORT ---
EXAM DESCRIPTION: RAD - Knee Left 2 View - 11/20/2022 12:09 am XR Left Knee, 1 or 2 Views CLINICAL HISTORY: The patient is 72 years old and is Male; pain and recent surgery TECHNIQUE: Frontal and/or lateral views of the left knee. COMPARISON: No relevant prior studies available. FINDINGS: BONES/JOINTS: A long stem knee prosthesis is present. The hardware is engaged. Lateral p late and cerclage wires stabilizing the distal femoral diaphysis is noted. No acute fracture. No dislocation. SOFT TISSUES: Extensive soft tissue swelling about the knee is present. IMPRESSION: Postoperative change of the left knee without acute findings. Electronically signed by: Nai Smalls MD 11/20/2022 12:31 AM CDT Due to temporary technical issues with the PACS/Fluency reporting system, reports are being signed by the in house radiologists without review as a courtesy to insure prompt reporting. The interpreting radiologist is fully responsible for the content of the report.
--- NOTE | 2022-11-21 19:59 | RAD REPORT ---
EXAM DESCRIPTION: RAD - Femur Left - 11/20/2022 12:09 am CLINICAL HISTORY: The patient is 72 years old and is Male; recent surgery, assess for hardware probl em TECHNIQUE: Frontal and lateral views of the left femur. COMPARISON: No relevant prior studies available. FINDINGS: BONES/JOINTS: Lateral plate and screws and cerclage wires along the mid to distal left f emur is present. Associated nondisplaced mid diaphyseal femur fracture is present. Left knee prosthes is is noted. The hardware is engaged without surrounding lucency. No dislocation. SOFT TISSUES: Unremarkable. IMPRESSION: Postoperative change of the femur with plate and screw fixation stabilizing a nondisplac ed fracture of the mid diaphysis. Comparison with preoperative radiographs of the useful. Electronically signed by: Nai Smalls MD 11/20/2022 12:36 AM CDT Due to temporary technical issues with the PACS/Fluency reporting system, reports are being signed by the in house radiologists without review as a courtesy to insure prompt reporting. The interpreting radiologist is fully responsible for the content of the report.
--- NOTE | 2022-11-21 20:02 | RAD REPORT ---
EXAM DESCRIPTION: CT - Pelvis Wo Cont - 11/20/2022 6:37 am CLINICAL HISTORY: The patient is 72 years old and is Male; acute pain Left hip TECHNIQUE: Axial computed tomography images of the pelvis without intravenous contrast. Sagittal a nd coronal reformatted images were created and reviewed. This CT exam was performed using one or mo re of the following dose reduction techniques: automated exposure control, adjustment of the mA and /or kV according to patient size, and/or use of iterative reconstruction technique. COMPARISON: No relevant prior studies available. FINDINGS: BONES/JOINTS: Cystic change within the right pubic root is present. The femoral heads ar e located. The SI joints and pubic symphysis are intact without evidence of diastases. Degenerative change of lower lumbar spine is present. There is no acute fracture of the visualized bones of the p omid. Ankylosis of the left SI joint is present. SOFT TISSUES: The soft tissues are normal. VASCULATURE: Atherosclerosis of the vasculature is present. BLADDER: The bladder is significantly distended. No stones. IMPRESSION: No acute bony abnormality in the pelvis. Electronically signed by: Nai Smalls MD 11/20/2022 12:15 AM CDT Due to temporary technical issues with the PACS/Fluency reporting system, reports are being signed by the in house radiologists without review as a courtesy to insure prompt reporting. The interpreting radiologist is fully responsible for the content of the report.
== END 2022-11-20 02:24 | disposition home or self-care (01) ==
LOC: ER 22:35
DX: S73.112A Iliofemoral ligament sprain of left hip, initial encounter (principal); G89.18 Other acute postprocedural pain; Z96.652 Presence of left artificial knee joint; R26.9 Unspecified abnormalities of gait and mobility; I10 Essential (primary) hypertension; Z88.0 Allergy status to penicillin; Z88.1 Allergy status to other antibiotic agents
CPT/HCPCS: 72192; 73560; 73552; 96375; 96374; 99284; Q0169; J2405